=== PATIENT | male | born 1970 | race African-American/Black ===

== ENCOUNTER 2018-09-24 09:20 | Emergency (ER) | payer MEDICAID ==
[~2018-09-24] VITALS: Ht 193 cm; Wt 109.0 kg
[2018-09-24 09:40] VITALS: BP 145/101
== END 2018-09-24 12:11 | disposition left against medical advice (07) ==
LOC: ER 09:20
DX: Z53.21 Procedure and treatment not carried out due to patient leaving prior to being seen by health care provider (principal)

== ENCOUNTER 2018-10-06 08:11 | Emergency (ER) | payer MEDICAID ==
[~2018-10-06] VITALS: Ht 193 cm; Wt 109.0 kg
[2018-10-06 10:09] LABS: CLARITY URINE CLEAR (CLEAR); COLOR URINE YELLOW (YELLOW); KETONES URINE NEGATIVE (NEGATIVE); LEUKOCYTE ESTERASE URINE NEGATIVE (NEGATIVE); NITRITE URINE NEGATIVE (NEGATIVE); OCCULT BLOOD URINE NEGATIVE (NEGATIVE); PH URINE 6.5 (4.5-8.0); PROTEIN URINE NEGATIVE (NEGATIVE); SPECIFIC GRAVITY URINE 1.024 (1.005-1.030)
[2018-10-06 10:32] LABS: *AMPHETAMINES SCREEN URINE NEGATIVE (NEGATIVE)
[2018-10-06 10:33] LABS: *BARBITURATES SCREEN URINE NEGATIVE (NEGATIVE); *BENZODIAZEPINES SCREEN URINE NEGATIVE (NEGATIVE); METHADONE URINE SCREEN NEGATIVE (NEGATIVE); OPIATES URINE SCREEN NEGATIVE (NEGATIVE); PHENCYCLIDINE URINE SCREEN NEGATIVE (NEGATIVE)
[2018-10-06 10:34] LABS: CANNABINOID URINE SCREEN PRESUMTIVE POSITIVE (NEGATIVE)
[2018-10-06 10:38] LABS: *COCAINE SCREEN URINE NEGATIVE (NEGATIVE)
[2018-10-06 10:39] LABS: BASOPHILS % 1.1 % (0.0-2.0); EOSINOPHILS % 4.4 % (0.0-5.0); HEMATOCRIT. 48.3 % (42.0-52.0); HEMOGLOBIN. 16.3 g/dL (14.0-18.0); LYMPHOCYTES % 29.8 % (20.0-50.0); MEAN CORPUSCULAR HEMOGLOBIN 30.5 pg (28.0-32.0); MEAN CORPUSCULAR VOLUME 90.1 fL (80.0-94.0); MEAN PLATELET VOLUME 9.5 fl (7.4-10.4); MONOCYTES % 14.7 % (2.0-8.0); PLATELET 140 x1000/uL (130-400); RED BLOOD CELL COUNT 5.36 mill/uL (4.7-6.1)
[2018-10-06 10:40] LABS: CHLORIDE 104 mEq/L (98-107)
[2018-10-06 10:44] LABS: ETHANOL BLOOD < 10 mg/dL
[2018-10-06 11:38] VITALS: BP 146/98
== END 2018-10-06 11:39 | disposition home or self-care (01) ==
LOC: ER 08:31
DX: H81.10 Benign paroxysmal vertigo, unspecified ear (principal)
CPT/HCPCS: 36415; 71045; 80053; 80305; 80320; 81003; 85025; 93005; 99284; Z7610; G0480